=== PATIENT | female | born 1960 | race Caucasian/White ===

== ENCOUNTER 2024-05-28 09:57 | Day surgery (SDC) | payer OTHER, SELFPAY ==
[2024-05-28] VITALS (12 sets, daily range): BP systolic 104–178; BP diastolic 66–85; PULSE 75–87; TEMP 36.2–36.6; O2SAT 92–100; BMI 41.4
--- NOTE | 2024-05-28 09:58 | ECG_ITS ---
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
[2024-05-28 10:09] LABS: Basophils Absolute Auto 0.1 10^3/uL (0.0-0.1); Basophils Percent Auto 0.8 % (0.2-2.0); Eosinophils Absolute Auto 0.2 10^3/uL (0.0-0.7); Eosinophils Percent Auto 2.8 % (0.9-7.0); Hematocrit 39.2 % (36.0-48.0); Hemoglobin 12.7 g/dL (12.0-16.0); Immature Granulocytes Abs Auto 0.03 10^3/uL (0.00-0.03); Immature Granulocytes Pct Auto 0.5 % (0.0-0.5); Lymphocytes Absolute Auto 1.5 10^3/uL (1.2-3.8); Lymphocytes Percent Auto 23.1 % (20.5-60.0); Mean Corpuscular HGB Conc 32.4 g/dL (29.9-35.2); Mean Corpuscular Hemoglobin 31.4 pg (26.7-34.0); Mean Platelet Volume 9.1 fL (9.5-13.5); Monocytes Absolute Auto 0.7 10^3/uL (0.3-0.8); Monocytes Percent Auto 10.7 % (1.7-12.0); Neutrophils Percent Auto 62.1 % (43.0-75.0); Platelet Count 341 10^3/uL (150-450); Red Blood Count 4.04 10^6/uL (4.20-5.40); Red Cell Distribution Width 12.9 % (11.0-15.0); White Blood Count 6.5 10^3/uL (4.0-11.0)
[2024-05-28 10:16] LABS: Anion Gap 10.1; BUN Creatinine Ratio 20.5; Chloride 105 mmol/L (98-107); Estimated GFR (African America 60 (>=60 mL/min/1.73m^2); Estimated GFR (Non-African Ame 49 (>=60 mL/min/1.73m^2); Glucose 94 mg/dL (74-106); Potassium 4.1 mmol/L (3.5-5.1); Sodium 143 mmol/L (136-145)
[2024-05-28 10:24] LABS: Calcium 8.8 mg/dL (8.5-10.1); INR 0.96; Partial Thromboplastin Time 26.3 sec (22.3-36.2); Prothrombin Time 10.2 sec (9.0-11.6)
[2024-05-28] MEDS: LACTATED RINGER'S SOLUTION 1,000 ML 50 ML IV ×2 (10:48→13:46)
[2024-05-28] MEDS: CEFAZOLIN SODIUM 2 GM/50 ML D5W PREMIX IV (12:16)
--- NOTE | 2024-05-28 13:20 | PM.URSON ---
Urology Surgery Operative Note Operative Note Procedure Date: 05/28/24 Time Out Performed: yes Pre-op Diagnosis: Distal right ureteral calculus Post-op Diagnosis: same as pre-op Procedures performed: 1. Cystoscopy. 2. Right rigid ureteral dilation. 3. Right ureteroscopy. 4. Thulium laser lithotripsy of right ureteral calculus. 5. Stone fragment basket extraction. 6. Placement of 6 Moldovan variable length right ureteral stent Anesthesia: General-LMA Primary Surgeon: Cristi Santo Complications: None Estimated blood loss (mL): 5 Findings: Obstructed distal right ureteral calculus from UO Specimens: Right ureteral calculus Drains: 6 Moldovan variable length right ureteral stent Indications for Procedures: This lady has a 6 mm right distal ureteral calculus that she is unable to pass. She is strongly desirous for endoscopic stone manipulation and possible right stent placement. She has signed an informed consent after all risks were explained to her. We conversed with her [facility] office regarding her abnormal EKG. This apparently is chronic and she had a recent stress test which was negative. Detailed description of Procedure: The patient was brought to the operating room and placed on the operating room table in the supine position. SCDs were placed on the lower extremities and turned on and functioning during the entire case. Timeout was done by all parties in the room. We all agreed upon the patient's identification and the planned procedures for this patient. Genn. anesthesia was then administered. The patient was then repositioned into the modified dorsal lithotomy position. All pressure points were satisfactorily padded. Genitalia were sterilely prepped and draped in usual fashion. I started by passing a 22 Moldovan Olympus cystoscope per urethra and into the bladder. Panendoscopy in the bladder revealed no evidence of any tumors. The right ureter was extremely edematous and inflamed red and there was a stone . I then tried to get a Glidewire through the scope into the right ureter but was unable due to the tight stone at the UO. I had to use a 6 Moldovan open-ended ureteral catheter over the wire and eventually got the wire up to the kidney. A 10 Moldovan dilator was then passed over the wire and the ureter was dilated. The scope was removed. I then passed a semirigid ureteroscope into the bladder and into the ureter and got right to the stone. A 270 Angstrom laser fiber was passed through the scope and made contact with the stone. The thulium laser was used at 6 W fragmentation mode. I was able to fragment the stone and then used a 0 tip nitinol basket to engage pieces and dumped them in the base of the bladder. I went up and down the ureter numerous times clearing out pieces until the right ureter was free of stone. After the ureteroscope was removed, the cystoscope was backloaded over the wire and passed into the bladder and a 6 Moldovan variable length stent was passed over the wire up to the kidney. The wire was removed and there were good curls in the kidney and in the bladder. The Ilich evacuator was used to get all the stone pieces out from the base of the bladder. These were sent for stone analysis. The bladder was drained of its contents and the scope was then removed. She was then transferred to a [facility] bed and wheeled to PACU in stable condition.
[2024-05-28] MEDS: SOLIFENACIN SUCCINATE 10 MG TABLET PO (13:45)
[2024-06-02 14:08] LABS: Calcium Oxalate Dihydrate 80 % (.); Calcium Oxalate Monohydrate 20 % (.); Size 3x3 mm (.)
== END 2024-05-28 15:40 | disposition home or self-care (01) ==
PROVIDERS: PCP Student in an Organized Health Care Education/Training Program; Visit Provider Urology
PROC: (CPT 918; principal; 2024-05-28 11:45)
DX: N13.2 Hydronephrosis with renal and ureteral calculous obstruction (principal); K21.9 Gastro-esophageal reflux disease without esophagitis; F32.A Depression, unspecified; E03.9 Hypothyroidism, unspecified; E78.5 Hyperlipidemia, unspecified; I10 Essential (primary) hypertension; Z90.49 Acquired absence of other specified parts of digestive tract; Z87.442 Personal history of urinary calculi
CPT/HCPCS: 52356; 36415; 76000; 80048; 82365; 85025; 85610; 85730; 93005; 99999; J0690; J1100; J1805; J1885; J2250; J2371; J2405; J2704; J3010